=== PATIENT | female | born 1970 | race Two or more races ===

== ENCOUNTER 2022-09-11 15:50 | Emergency (ER) | payer MEDICAID, OTHER ==
[~2022-09-11] VITALS: Ht 165.1 cm; Wt 76.0 kg
[2022-09-11 16:10] VITALS: BP 157/108
== END 2022-09-11 17:40 | disposition home or self-care (01) ==
LOC: ER 15:50
DX: R07.81 Pleurodynia (principal); M25.512 Pain in left shoulder; M79.18 Myalgia, other site
CPT/HCPCS: 71046